=== PATIENT | male | born 1990 | race Caucasian/White ===

== ENCOUNTER 2020-05-08 21:28 | Emergency (ER) | payer OTHER ==
[2020-05-08 22:06] VITALS: TEMP 97.5; BMI 41.0
[2020-05-09 00:25] LABS: EOS % 0.2 % (0-4.5); HEMATOCRIT 45.5 % (35.4-49); HEMOGLOBIN 14.9 GM/dL (11.7-16.9); LYMPH % 22.4 % (8-40); MCH 26.9 pg (25.7-33.7); MCHC 32.8 g/dl (32.0-35.9); MEAN PLT VOLUME 8.4 fl (7.5-11.1); MONO % 8.3 % (3.8-10.2); NEUT % 68.1 % (42.8-82.8); PLATELET COUNT 280 K/MM3 (134-434); RBC 5.55 M/mm3 (4.00-5.60); RDW 14.5 % (11.9-15.9); WHITE BLOOD COUNT 11.3 K/mm3 (4.0-10.0)
[2020-05-09 00:45] LABS: POTASSIUM 4.4 mmol/L (3.5-5.1)
[2020-05-09 00:47] LABS: ALBUMIN 3.9 g/dl (3.4-5.0); BLOOD UREA NITROGEN 6.6 mg/dL (7-18); CALCIUM 9.2 mg/dL (8.5-10.1)
[2020-05-09 00:50] LABS: CREATININE 0.7 mg/dL (0.55-1.3)
[2020-05-09 00:53] LABS: BILIRUBIN,TOTAL 0.6 mg/dL (0.2-1); TOT PROT 9.2 g/dl (6.4-8.2)
[2020-05-09 02:17] VITALS: BP 125/91; PULSE 93
== END 2020-05-09 02:18 | disposition home or self-care (01) ==
LOC: JER 21:28
DX: R42 Dizziness and giddiness (principal); I10 Essential (primary) hypertension
CPT/HCPCS: 36415; 71046-TC-FY; 80053; 84443; 85025; 93005; 93010; 99285-25